=== PATIENT | female | born 1950 | race Caucasian/White ===

== ENCOUNTER 2017-07-15 07:22 | Inpatient (IN) ==
[2017-07-15] MEDS ORDERED: diphenhydrAMINE 50 MG/1 ML VIAL IV STA (07:47)
[2017-07-15] MEDS ORDERED: PROMETHAZINE 25 MG/1 ML VIAL IM STA (07:47)
[2017-07-15] MEDS ORDERED: diphenhydrAMINE 50 MG/1 ML VIAL ONE (07:53)
[2017-07-15] MEDS ORDERED: PROMETHAZINE 25 MG/1 ML VIAL ONE (07:53)
[2017-07-15] MEDS ORDERED: ASPIRIN 325 MG TABLET PO STA (08:19)
[2017-07-15] MEDS ORDERED: ASPIRIN 325 MG TABLET ONE (08:27)
[2017-07-15 08:29] LABS: Basophils # 0.1 10*3/uL (0.0-0.2); Basophils % 0.7 % (0.0-0.8); Eosinophils # 0.1 10*3/uL (0.0-0.87); Eosinophils % 1.2 % (0.00-10.9); Hematocrit 40.2 VOL% (35.7-47.0); Hemoglobin 13.3 GM/DL (12.0-16.0); Immature Granulocytes % 0.4 %; Immature Granulocytes Absolute 0.04 #; Lymphocytes # 2.1 10*3/uL (1.4-4.0); Mean Corpuscular HGB Conc 33.1 GM/DL (32-36); Mean Corpuscular Hemoglobin 31 PG (27-34); Mean Corpuscular Volume 92.8 FL (87-102); Mean Platelet Volume 10.1 FL (9.6-12.0); Monocytes # 0.8 10*3/uL (0.11-0.8); Monocytes % 9.1 % (1.7-12.7); Neutrophils % 65.6 % (38.7-73.9); Platelet Count 280 T/CUMM (130-400); Red Blood Count 4.33 MC/CUMM (3.8-5.5); Red Cell Distribution Width 13.5 % (9.3-17.3); White Blood Count 9.1 T/CUMM (4-12)
[2017-07-15 08:39] LABS: INR 0.9; PT Patient Result 9.7 SECS; Partial Thromboplastin Time 28.5 SECS (0-40)
[2017-07-15] MEDS ORDERED: KETOROLAC 30 MG/1 ML VIAL IV STA (09:04)
[2017-07-15] MEDS ORDERED: KETOROLAC 30 MG/1 ML VIAL ONE (09:05)
[2017-07-15 10:15] LABS: Sedimentation Rate-Westergren 32 MM/HR (0-30)
[2017-07-15 13:14] LABS: Albumin 3.7 G/DL (3.4-5.0); Bilirubin,Total 0.4 MG/DL (0.2-1.0); Calcium 8.7 MG/DL (8.5-10.1); Potassium 3.8 MMOL/L (3.5-5.1); Total Protein 7.7 G/DL (6.4-8.3)
[2017-07-15] MEDS ORDERED: ONDANSETRON 4 MG/2 ML VIAL IV PRN (14:06)
[2017-07-15 15:15] LABS: Cholesterol 268 MG/DL (50-200); HDL Cholesterol 63 MG/DL (40-60); Risk Ratio 4.25; Triglycerides 252 MG/DL (2-150); Troponin I Only < 0.015 NG/ML (0.00-0.045); VLDL CHOLESTEROL 50.4 MG/DL
[2017-07-15] MEDS: SODIUM CHLORIDE 0.9% 1,000 ML IV SCH (17:58)
[2017-07-15] MEDS: ACETAMINOPHEN 325 MG TABLET PO PRN (18:58)
[2017-07-15] MEDS: OMEGA 3 ACID ETHYL ESTERS 1 GM CAPSULE PO SCH (21:42)
[2017-07-15] MEDS: MONTELUKAST 10 MG TABLET PO SCH (21:42)
[2017-07-15] MEDS: LORazepam 1 MG TABLET PO SCH (21:43)
[2017-07-15] MEDS: CLOPIDOGREL 75 MG TABLET PO SCH (21:43)
[2017-07-15] MEDS: EZETIMIBE 10 MG TABLET PO SCH (21:49)
[2017-07-16] MEDS: LEVOTHYROXINE 50 MCG TABLET PO SCH (06:37)
[2017-07-16] MEDS: SODIUM CHLORIDE 0.9% 1,000 ML IV SCH (06:37)
[2017-07-16] MEDS: ACETAMINOPHEN 325 MG TABLET PO PRN ×3 (07:23→20:41)
[2017-07-16 07:40] LABS: Basophils # 0.1 10*3/uL (0.0-0.2); Basophils % 0.7 % (0.0-0.8); Eosinophils # 0.2 10*3/uL (0.0-0.87); Eosinophils % 1.9 % (0.00-10.9); Hematocrit 36.2 VOL% (35.7-47.0); Hemoglobin 11.9 GM/DL (12.0-16.0); Immature Granulocytes % 0.5 %; Immature Granulocytes Absolute 0.04 #; Lymphocytes # 2.6 10*3/uL (1.4-4.0); Lymphocytes % 29.2 % (21.3-54.2); Mean Corpuscular HGB Conc 32.9 GM/DL (32-36); Mean Corpuscular Hemoglobin 31 PG (27-34); Mean Corpuscular Volume 93.1 FL (87-102); Monocytes # 0.8 10*3/uL (0.11-0.8); Monocytes % 8.8 % (1.7-12.7); Neutrophils # 5.2 10*3/uL (1.4-7.4); Neutrophils % 58.9 % (38.7-73.9); Platelet Count 253 T/CUMM (130-400); Red Blood Count 3.89 MC/CUMM (3.8-5.5); Red Cell Distribution Width 13.5 % (9.3-17.3); White Blood Count 8.9 T/CUMM (4-12)
[2017-07-16 08:12] LABS: Calcium 8.5 MG/DL (8.5-10.1); Osmolality,Calculated 279.3 MOS/KG (273-304); Potassium 4.6 MMOL/L (3.5-5.1)
[2017-07-16] MEDS: ROSUVASTATIN 10 MG TABLET PO SCH ×2 (09:13→12:19)
[2017-07-16] MEDS: FLUTICASONE 50 MCG NASAL SPRAY 16 GM BOTTLE BOTH NARES SCH (09:13)
[2017-07-16] MEDS: PANTOPRAZOLE 40 MG TABLET PO SCH (09:14)
[2017-07-16] MEDS: CLOPIDOGREL 75 MG TABLET PO SCH (09:14)
[2017-07-16] MEDS: LORazepam 1 MG TABLET PO SCH ×2 (09:17→20:41)
[2017-07-16] MEDS: OMEGA 3 ACID ETHYL ESTERS 1 GM CAPSULE PO SCH ×2 (09:18→20:41)
[2017-07-16] MEDS: EZETIMIBE 10 MG TABLET PO SCH (20:41)
[2017-07-16] MEDS: MONTELUKAST 10 MG TABLET PO SCH (20:45)
[2017-07-17] MEDS: ACETAMINOPHEN 325 MG TABLET PO PRN ×2 (03:23→12:45)
[2017-07-17 04:58] LABS: Calcium 8.7 MG/DL (8.5-10.1); Osmolality,Calculated 275.5 MOS/KG (273-304)
[2017-07-17] MEDS: LEVOTHYROXINE 50 MCG TABLET PO SCH (06:17)
[2017-07-17] MEDS: OMEGA 3 ACID ETHYL ESTERS 1 GM CAPSULE PO SCH (08:58)
[2017-07-17] MEDS: PANTOPRAZOLE 40 MG TABLET PO SCH (09:00)
[2017-07-17] MEDS: ROSUVASTATIN 10 MG TABLET PO SCH (09:00)
[2017-07-17] MEDS: LORazepam 1 MG TABLET PO SCH (09:00)
[2017-07-17] MEDS: CLOPIDOGREL 75 MG TABLET PO SCH (09:01)
[2017-07-17] MEDS: FLUTICASONE 50 MCG NASAL SPRAY 16 GM BOTTLE BOTH NARES SCH (09:02)
[2017-07-17 12:20] VITALS: BP 153/70
== END 2017-07-17 17:30 | disposition home or self-care (01) | DRG 66 ==
LOC: N.ED 07:22 → N.EDINP 11:50 → N.4E 12:55
PROVIDERS: ADMIT Hospitalist; ATTEND Hospitalist

== ENCOUNTER 2017-07-22 09:02 | Inpatient (IN) ==
[2017-07-22 10:17] LABS: Basophils # 0.1 10*3/uL (0.0-0.2); Basophils % 0.6 % (0.0-0.8); Eosinophils # 0.1 10*3/uL (0.0-0.87); Eosinophils % 1.1 % (0.00-10.9); Hematocrit 41.1 VOL% (35.7-47.0); Hemoglobin 13.9 GM/DL (12.0-16.0); Immature Granulocytes % 0.4 %; Immature Granulocytes Absolute 0.03 #; Lymphocytes # 1.9 10*3/uL (1.4-4.0); Lymphocytes % 22.4 % (21.3-54.2); Mean Corpuscular HGB Conc 33.8 GM/DL (32-36); Mean Corpuscular Hemoglobin 31 PG (27-34); Mean Corpuscular Volume 91.1 FL (87-102); Mean Platelet Volume 10.1 FL (9.6-12.0); Monocytes # 0.8 10*3/uL (0.11-0.8); Monocytes % 8.8 % (1.7-12.7); Neutrophils # 5.7 10*3/uL (1.4-7.4); Neutrophils % 66.7 % (38.7-73.9); Platelet Count 322 T/CUMM (130-400); Red Blood Count 4.51 MC/CUMM (3.8-5.5); Red Cell Distribution Width 13.2 % (9.3-17.3); White Blood Count 8.5 T/CUMM (4-12)
[2017-07-22 10:36] LABS: INR 0.9; PT Patient Result 9.8 SECS; Partial Thromboplastin Time 29.8 SECS (0-40)
[2017-07-22 10:56] LABS: Alanine Aminotransferase 65 U/L (13-56); Alkaline Phosphatase 82 U/L (45-117); Aspartate Amino Transferase 55 U/L (0-37); Blood Urea Nitrogen 8 MG/DL (7-18); Calcium 9.1 MG/DL (8.5-10.1); Glucose 87 MG/DL (74-106); Osmolality,Calculated 262.4 MOS/KG (273-304); Potassium 4.7 MMOL/L (3.5-5.1); Sodium 133 MMOL/L (136-145); Total Protein 7.4 G/DL (6.4-8.3); Troponin I Only < 0.015 NG/ML (0.00-0.045)
[2017-07-22] MEDS ORDERED: LABETALOL 20 MG/4 ML SYRINGE IV PRN (10:56)
[2017-07-22] MEDS ORDERED: ENOXAPARIN 40 MG/0.4 ML SYRINGE SUBCUT SCH (11:00)
[2017-07-22] MEDS ORDERED: DOCUSATE SODIUM 100 MG CAPSULE PO PRN (11:08)
[2017-07-22] MEDS ORDERED: diphenhydrAMINE CAP 25 MG CAPSULE PO PRN (11:08)
[2017-07-22] MEDS ORDERED: PROMETHAZINE 25 MG/1 ML VIAL IM PRN (11:08)
[2017-07-22] MEDS ORDERED: MORPHINE 2 MG/1 ML SYRINGE IV PRN (11:08)
[2017-07-22] MEDS ORDERED: guaiFENesin/DM ER 600-30 MG TABLET PO PRN (11:08)
[2017-07-22 11:29] LABS: Risk Ratio 2.67
[2017-07-22] MEDS ORDERED: LORazepam 2 MG/1 ML VIAL ONE (11:35)
[2017-07-22] MEDS ORDERED: LORazepam 2 MG/1 ML VIAL IV STA (11:37)
[2017-07-22] MEDS: CLOPIDOGREL 75 MG TABLET PO SCH (15:24)
[2017-07-22] MEDS: SODIUM CHLORIDE 0.9% 1,000 ML IV SCH (15:47)
[2017-07-22] MEDS: OMEGA 3 ACID ETHYL ESTERS 1 GM CAPSULE PO SCH ×2 (15:50→22:51)
[2017-07-22] MEDS: PANTOPRAZOLE 40 MG TABLET PO SCH (15:50)
[2017-07-22] MEDS: ASPIRIN EC 81 MG TABLET PO SCH (15:51)
[2017-07-22] MEDS: ROSUVASTATIN 10 MG TABLET PO SCH (15:51)
[2017-07-22] MEDS: FLUTICASONE 50 MCG NASAL SPRAY 16 GM BOTTLE BOTH NARES SCH (15:53)
[2017-07-22] MEDS: LORazepam 1 MG TABLET PO SCH ×2 (15:57→22:19)
[2017-07-22] MEDS: COLESTIPOL 1 GM TABLET PO SCH ×2 (15:59→22:51)
[2017-07-22] MEDS ORDERED: HEPARIN DRIP 25,000 UNITS/500 ML PREMIX IV SCH (16:00)
[2017-07-22] MEDS ORDERED: TEMAZEPAM 7.5 MG CAPSULE PO PRN (17:06)
[2017-07-22] MEDS: ONDANSETRON 4 MG/2 ML VIAL IV PRN (18:17)
[2017-07-22] MEDS ORDERED: GLUCAGON 1 MG VIAL IM PRN (18:34)
[2017-07-22] MEDS ORDERED: DEXTROSE 50% 25 GM/50 ML VIAL IV PRN (18:34)
[2017-07-22] MEDS: EZETIMIBE 10 MG TABLET PO SCH (22:51)
[2017-07-23] MEDS: SODIUM CHLORIDE 0.9% 1,000 ML IV SCH ×2 (00:22→07:45)
[2017-07-23 06:12] LABS: Basophils # 0.1 10*3/uL (0.0-0.2); Basophils % 0.8 % (0.0-0.8); Eosinophils # 0.1 10*3/uL (0.0-0.87); Eosinophils % 0.8 % (0.00-10.9); Hematocrit 38.6 VOL% (35.7-47.0); Hemoglobin 13.4 GM/DL (12.0-16.0); Immature Granulocytes % 1.3 %; Immature Granulocytes Absolute 0.12 #; Lymphocytes # 1.8 10*3/uL (1.4-4.0); Lymphocytes % 19.2 % (21.3-54.2); Mean Corpuscular HGB Conc 34.7 GM/DL (32-36); Mean Corpuscular Hemoglobin 31 PG (27-34); Mean Corpuscular Volume 90.2 FL (87-102); Mean Platelet Volume 10.2 FL (9.6-12.0); Monocytes % 11.2 % (1.7-12.7); NRBC # 0.08 10*3/uL; Neutrophils # 6.2 10*3/uL (1.4-7.4); Neutrophils % 66.7 % (38.7-73.9); Platelet Count 270 T/CUMM (130-400); Red Blood Count 4.28 MC/CUMM (3.8-5.5); White Blood Count 9.3 T/CUMM (4-12)
[2017-07-23] MEDS ORDERED: TISSUE ADHESIVE 1 EACH APPLICATOR TOP ONE (08:18)
[2017-07-23] MEDS ORDERED: LIDOCAINE 1%/EPI INJ 20 ML VIAL ONE (08:18)
[2017-07-23 08:36] LABS: Alanine Aminotransferase 60 U/L (13-56); Albumin 3.3 G/DL (3.4-5.0); Alkaline Phosphatase 74 U/L (45-117); Aspartate Amino Transferase 45 U/L (0-37); Bilirubin,Total < 0.39 MG/DL (0.2-1.0); Blood Urea Nitrogen 6 MG/DL (7-18); Calcium 8.6 MG/DL (8.5-10.1); Glucose 118 MG/DL (74-106); Magnesium 2.4 MG/DL (1.8-2.4); Osmolality,Calculated 275.5 MOS/KG (273-304); Sodium 139 MMOL/L (136-145); Total Protein 6.2 G/DL (6.4-8.3)
[2017-07-23] MEDS ORDERED: CLOPIDOGREL 75 MG TABLET PO SCH (09:00)
[2017-07-23] MEDS ORDERED: PROPOFOL 200 MG/20 ML VIAL IV ONE (09:22)
[2017-07-23] MEDS ORDERED: MIDAZOLAM 2 MG/2 ML VIAL ONE (09:22)
[2017-07-23] MEDS: ASPIRIN EC 81 MG TABLET PO SCH (11:45)
[2017-07-23] MEDS: CLOPIDOGREL 75 MG TABLET PO SCH (11:45)
[2017-07-23] MEDS: LEVOTHYROXINE 50 MCG TABLET PO SCH (11:45)
[2017-07-23] MEDS: OMEGA 3 ACID ETHYL ESTERS 1 GM CAPSULE PO SCH ×2 (11:45→21:11)
[2017-07-23] MEDS: FLUTICASONE 50 MCG NASAL SPRAY 16 GM BOTTLE BOTH NARES SCH (11:45)
[2017-07-23] MEDS: COLESTIPOL 1 GM TABLET PO SCH ×2 (11:45→21:12)
[2017-07-23] MEDS: PANTOPRAZOLE 40 MG TABLET PO SCH (11:45)
[2017-07-23] MEDS: ROSUVASTATIN 10 MG TABLET PO SCH (11:45)
[2017-07-23] MEDS: LORazepam 1 MG TABLET PO SCH ×2 (11:45→21:12)
[2017-07-23] MEDS: ENOXAPARIN 30 MG/0.3 ML SYRINGE SUBCUT SCH (15:35)
[2017-07-23] MEDS: ACETAMINOPHEN 325 MG TABLET PO PRN ×2 (17:00→21:12)
[2017-07-23] MEDS: ONDANSETRON 4 MG/2 ML VIAL IV PRN (17:45)
[2017-07-23] MEDS: EZETIMIBE 10 MG TABLET PO SCH (21:11)
[2017-07-23] MEDS: APIXABAN 5 MG TABLET PO SCH (21:12)
[2017-07-24] MEDS: LEVOTHYROXINE 50 MCG TABLET PO SCH (06:18)
[2017-07-24 06:46] LABS: Basophils # 0.1 10*3/uL (0.0-0.2); Basophils % 0.8 % (0.0-0.8); Eosinophils # 0.1 10*3/uL (0.0-0.87); Eosinophils % 0.6 % (0.00-10.9); Hematocrit 37.6 VOL% (35.7-47.0); Hemoglobin 12.3 GM/DL (12.0-16.0); Immature Granulocytes % 0.7 %; Immature Granulocytes Absolute 0.06 #; Lymphocytes # 1.7 10*3/uL (1.4-4.0); Lymphocytes % 20.3 % (21.3-54.2); Mean Corpuscular HGB Conc 32.7 GM/DL (32-36); Mean Corpuscular Hemoglobin 31 PG (27-34); Mean Corpuscular Volume 94.2 FL (87-102); Mean Platelet Volume 10.2 FL (9.6-12.0); Monocytes # 0.7 10*3/uL (0.11-0.8); Monocytes % 8.4 % (1.7-12.7); Neutrophils # 5.8 10*3/uL (1.4-7.4); Neutrophils % 69.2 % (38.7-73.9); Platelet Count 253 T/CUMM (130-400); Red Blood Count 3.99 MC/CUMM (3.8-5.5); Red Cell Distribution Width 12.9 % (9.3-17.3); White Blood Count 8.3 T/CUMM (4-12)
[2017-07-24 07:55] LABS: Calcium 8.4 MG/DL (8.5-10.1); Osmolality,Calculated 271.7 MOS/KG (273-304); Potassium 4.5 MMOL/L (3.5-5.1)
[2017-07-24] MEDS: ASPIRIN EC 81 MG TABLET PO SCH (09:09)
[2017-07-24] MEDS: ROSUVASTATIN 10 MG TABLET PO SCH (09:09)
[2017-07-24] MEDS: LORazepam 1 MG TABLET PO SCH ×2 (09:10→21:11)
[2017-07-24] MEDS: COLESTIPOL 1 GM TABLET PO SCH ×2 (09:10→21:12)
[2017-07-24] MEDS: PANTOPRAZOLE 40 MG TABLET PO SCH (09:11)
[2017-07-24] MEDS: OMEGA 3 ACID ETHYL ESTERS 1 GM CAPSULE PO SCH ×2 (09:12→21:12)
[2017-07-24] MEDS: APIXABAN 5 MG TABLET PO SCH ×2 (09:12→21:12)
[2017-07-24] MEDS: FLUTICASONE 50 MCG NASAL SPRAY 16 GM BOTTLE BOTH NARES SCH (09:19)
[2017-07-24] MEDS: ENOXAPARIN 30 MG/0.3 ML SYRINGE SUBCUT SCH (16:16)
[2017-07-24] MEDS: EZETIMIBE 10 MG TABLET PO SCH (21:11)
[2017-07-24] MEDS: ONDANSETRON 4 MG/2 ML VIAL IV PRN ×2 (21:12→21:22)
[2017-07-25] MEDS: ACETAMINOPHEN 325 MG TABLET PO PRN ×2 (02:30→16:29)
[2017-07-25] MEDS: LEVOTHYROXINE 50 MCG TABLET PO SCH (06:29)
[2017-07-25] MEDS: ROSUVASTATIN 10 MG TABLET PO SCH (09:43)
[2017-07-25] MEDS: OMEGA 3 ACID ETHYL ESTERS 1 GM CAPSULE PO SCH ×2 (09:43→20:40)
[2017-07-25] MEDS: COLESTIPOL 1 GM TABLET PO SCH ×2 (09:43→20:40)
[2017-07-25] MEDS: LORazepam 1 MG TABLET PO SCH ×2 (09:44→20:43)
[2017-07-25] MEDS: PANTOPRAZOLE 40 MG TABLET PO SCH (09:44)
[2017-07-25] MEDS: APIXABAN 5 MG TABLET PO SCH ×2 (09:44→20:40)
[2017-07-25] MEDS: FLUTICASONE 50 MCG NASAL SPRAY 16 GM BOTTLE BOTH NARES SCH (09:46)
[2017-07-25] MEDS: ESTRADIOL 0.1 MG PATCH (1X WK) TRANSDERM SCH ×2 (12:58→17:29)
[2017-07-25] MEDS: DEXAMETHASONE 4 MG/1 ML VIAL IV SCH ×2 (13:00→23:23)
[2017-07-25] MEDS: EZETIMIBE 10 MG TABLET PO SCH (20:40)
[2017-07-26] MEDS: LEVOTHYROXINE 50 MCG TABLET PO SCH (06:00)
[2017-07-26] MEDS: OMEGA 3 ACID ETHYL ESTERS 1 GM CAPSULE PO SCH (08:30)
[2017-07-26] MEDS: ROSUVASTATIN 10 MG TABLET PO SCH (08:30)
[2017-07-26] MEDS: LORazepam 1 MG TABLET PO SCH (08:31)
[2017-07-26] MEDS: PANTOPRAZOLE 40 MG TABLET PO SCH (08:31)
[2017-07-26] MEDS: APIXABAN 5 MG TABLET PO SCH (08:31)
[2017-07-26] MEDS: COLESTIPOL 1 GM TABLET PO SCH (08:31)
[2017-07-26 08:58] VITALS: BP 142/66
[2017-07-26] MEDS: FLUTICASONE 50 MCG NASAL SPRAY 16 GM BOTTLE BOTH NARES SCH (09:03)
[2017-07-26 14:56] LABS: Protein C Activity Plasma 152 % (70 - 150)
[2017-07-29 12:14] LABS: DRVVT Confirmation 0.8 ratio (0.0 - 1.1); DRVVT Mix Ratio (Mayo Reflex) 1.2 ratio (0.0 - 1.1); Thrombin Time (Bovine), P 21 sec (15 - 23)
[2017-07-29 12:43] LABS: Protein S Activity Plasma 149 % (65 - 160)
[2017-07-29 17:46] LABS: F5DNA Reviewed By SEE COMMENTS; Factor V Leiden (R506Q) Mutati Negative (Negative)
[2017-07-30 14:41] LABS: Protein C Antigen 118 % (70-150)
[2017-07-31 08:35] LABS: DRVVT Screen Ratio 1.2 ratio (0.0 - 1.1); INR 1.2
== END 2017-07-26 09:00 | DRG 41 ==
LOC: N.ED 09:02 → N.EDINP 10:56 → N.4E 13:21 → N.ICU 18:51 → N.5E 07-24 17:52
PROVIDERS: ADMIT Internal Medicine; ATTEND Radiology Radiation Oncology

== ENCOUNTER 2019-09-24 20:03 | Observation (INO) ==
[2019-09-24 20:49] LABS: Basophils # 0.1 10*3/uL (0.0-0.2); Basophils % 0.8 % (0.0-0.8); Eosinophils # 0.2 10*3/uL (0.0-0.87); Eosinophils % 1.5 % (0.00-10.9); Hematocrit 41.2 VOL% (35.7-47.0); Hemoglobin 13.6 GM/DL (12.0-16.0); Immature Granulocytes % 0.3 %; Immature Granulocytes Absolute 0.03 #; Lymphocytes # 4.7 10*3/uL (1.4-4.0); Lymphocytes % 43.5 % (21.3-54.2); Mean Corpuscular Volume 90.7 FL (87-102); Mean Platelet Volume 10.2 FL (9.6-12.0); Monocytes % 7.9 % (1.7-12.7); Platelet Count 317 T/CUMM (130-400); Red Blood Count 4.54 MC/CUMM (3.8-5.5); Red Cell Distribution Width 12.5 % (9.3-17.3); White Blood Count 10.8 T/CUMM (4-12)
[2019-09-24 21:11] LABS: Alanine Aminotransferase 40 U/L (13-56); Albumin 4.2 G/DL (3.4-5.0); Alkaline Phosphatase 82 U/L (45-117); Aspartate Amino Transferase 32 U/L (0-37); Bilirubin,Total < 0.39 MG/DL (0.2-1.0); Blood Urea Nitrogen 9 MG/DL (7-18); Calcium 9.2 MG/DL (8.5-10.1); Estimated Glom Filtration Rate 88 ML/MIN; Glucose 89 MG/DL (74-106); Total Protein 7.5 G/DL (6.4-8.3)
[2019-09-25] MEDS ORDERED: ASPIRIN EC 325 MG TABLET PO STA (00:32)
[2019-09-25] MEDS ORDERED: LORazepam 1 MG TABLET PO STA (00:54)
[2019-09-25] MEDS ORDERED: DEXTROSE 50% 25 GM/50 ML VIAL IV PRN (00:57)
[2019-09-25] MEDS ORDERED: GLUCAGON 1 MG VIAL IM PRN (00:57)
[2019-09-25] MEDS ORDERED: ENOXAPARIN 40 MG/0.4 ML SYRINGE SUBCUT SCH (01:00)
[2019-09-25] MEDS ORDERED: DOCUSATE SODIUM 100 MG CAPSULE PO PRN (01:02)
[2019-09-25] MEDS ORDERED: guaiFENesin/DM ER 600-30 MG TABLET PO PRN (01:02)
[2019-09-25] MEDS ORDERED: LEVOTHYROXINE 25 MCG TABLET PO SCH (06:00)
[2019-09-25] MEDS ORDERED: ACETAMINOPHEN 325 MG TABLET PO PRN (08:57)
[2019-09-25] MEDS ORDERED: COENZYME Q10 100 MG CAPSULE PO SCH (09:00)
[2019-09-25] MEDS ORDERED: APIXABAN 5 MG TABLET PO SCH (09:00)
[2019-09-25] MEDS ORDERED: AMITRIPTYLINE 25 MG TABLET PO SCH (09:00)
[2019-09-25] MEDS ORDERED: OMEGA 3 ACID ETHYL ESTERS 1 GM CAPSULE PO SCH (09:00)
[2019-09-25] MEDS ORDERED: ROSUVASTATIN 10 MG TABLET PO SCH (09:00)
[2019-09-25 10:47] LABS: Troponin I 0.024 NG/ML (0.00-0.045)
[2019-09-25] MEDS ORDERED: LORazepam 1 MG TABLET PO ONE (10:54)
[2019-09-25] MEDS ORDERED: PANTOPRAZOLE 40 MG TABLET PO SCH (11:00)
[2019-09-25 11:12] LABS: Risk Ratio 3.05
[2019-09-25 13:07] VITALS: BP 129/54
[2019-09-25] MEDS ORDERED: EZETIMIBE 10 MG TABLET PO SCH (21:00)
[2019-09-25] MEDS ORDERED: LORazepam 1 MG TABLET PO SCH (21:00)
[2019-09-25] MEDS ORDERED: MONTELUKAST 10 MG TABLET PO SCH (21:00)
[2019-09-26] MEDS ORDERED: ASPIRIN EC 81 MG TABLET PO SCH (09:00)
[2019-09-26] MEDS ORDERED: ASPIRIN EC 325 MG TABLET PO SCH (09:00)
[2019-09-27] MEDS ORDERED: ESTRADIOL 0.1 MG PATCH (1X WK) TRANSDERM SCH (01:02)
== END 2019-09-25 14:45 | disposition home or self-care (01) ==
LOC: N.ED 20:03 → N.EDINP 20:03 → N.2W 09-25 02:19
PROVIDERS: ADMIT Internal Medicine; ATTEND Internal Medicine